=== PATIENT | male | born 1990 | race Two or more races ===

== ENCOUNTER 2020-10-28 23:05 | Emergency (ER) | payer OTHER ==
[~2020-10-28] VITALS: Ht 172.7 cm; Wt 77.1 kg
--- NOTE | 2020-10-28 23:13 | NUR ---
ED Nurse Note: Pt c/o bilateral eye irritation. Reports dust got in them at work and irritation got worse after shower.
[2020-10-28] MEDS ORDERED: Fluorescein Strips RIGHT EYE ONE (23:30)
[2020-10-28] MEDS ORDERED: ACUVAIL 0.45%1 EACH OP (23:32)
[2020-10-28] MEDS ORDERED: ARTIFICIAL TEAR15 ML BOTH EYES (23:32)
[2020-10-28 23:37] VITALS: BP 120/82
--- NOTE | 2020-10-28 23:37 | Emergency Room Report ---
History of Present Illness General Chief Complaint: Eye Problems Source: Patient Present Illness HPI Disclaimer: Please note that this report is being documented using [employer]AG[employer] technology. This can lead to erroneous entry secondary to incorrect interpretation by the dictating instrument. HPI: 30-year-old male presents for bilateral eye irritation. Symptoms began after cleaning a [employer] [place] earlier today. He reports a gritty sensation in his eyes and increased lacrimation. Denies burning, pain with extraocular movement, swelling, headache, sinus congestion, rhinorrhea. Denies eye trauma. PMH: Reviewed PSH: Reviewed Allergies: Reviewed Social Hx: Reviewed Allergies: Coded Allergies: PROCHLORPERAZINE (Verified Allergy, Unknown, 10/28/20) COVID-19 Screening Contact w/high risk pt: No Experienced COVID-19 symptoms?: No COVID-19 Testing performed PROCUREMENT COORDINATOR: Yes - june 2020 COVID-19 Screening: Negative COVID-19 COVID-19 Testing Source: formerly [facility] Nursing Documentation-PMH Past Medical History: No Stated History Review of Systems All Other Systems: negative except mentioned in HPI Physical Exam Vital Signs Date Time Temp Pulse Resp B/P (MAP) Pulse Ox O2 Delivery O2 Flow Rate FiO2 10/28/20 23:08 98.2 88 18 120/82 (95) 99 Room Air General: Awake and alert, no acute distress HEENT: NC/AT. Bilateral conjunctival injection without chemosis. No hyphema, no hypopyon. No limitation on extraocular movements. Visual acuity shows 20/30 OS, 20/30 OD, 20/30 OU. Roberts lamp examination shows no corneal abrasions, no ulcers, no dendrites, negative Kristie. Resp: Normal work of breathing Skin: Intact. No abrasions, laceration or rash over the exposed skin MSK: Normal tone and bulk. Moving all extremities. No obvious deformity. Neuro: Awake and alert. Mentating appropriately Medical Decision Making Diagnostic Impression: Primary Impression: Eye irritation ER Course 30-year-old male presents with bilateral eye irritation. Likely irritant from the dust he was exposed to earlier today. No evidence of corneal abrasion, ulcers or other significant pathology. Feeling much better after receiving tetracaine. Will discharge with artificial tears and Toradol drops. Follow-up as needed. Last Vital Signs Date Time Temp Pulse Resp B/P (MAP) Pulse Ox O2 Delivery O2 Flow Rate FiO2 10/28/20 23:08 98.2 88 18 120/82 (95) 99 Room Air Disposition: HOME, SELF-CARE Condition: Stable Scripts Dextran 70/Hypromellose (ARTIFICIAL TEARS EYE DROPS*) 15 Ml Drops 1 DROP BOTH EYES TID, #15 ML 0 Refills Prov: Luís Patel MD 10/28/20 Ketorolac Tromethamine/Pf (ACUVAIL 0.45% OPHTH SOLUTION) 1 Each Droperette 1 EACH OP TID for 2 Days, #1 APPL Prov: Luís Patel MD 10/28/20 Patient Instructions: Chemical Conjunctivitis Additional Instructions: Please follow-up with your primary care doctor in the next 1 to 3 days to discuss this emergency department visit and for reevaluation. If you have any new or worsening symptoms please return to the emergency department for reevaluation. Please note that this report is being documented using [employer] technology. This can lead to erroneous entry secondary to incorrect interpretation by the dictating instrument. Luís Patel MD Oct 28, 2020 23:37
[2020-10-28 23:41] VITALS: BP 120/82
--- NOTE | 2020-10-28 23:42 | NUR ---
ER DISCHARGE NOTE: Patient is cleared to be discharged per ER MD, pt is aaox4, on room air, with stable vital signs. pt was given d/c and prescription instructions, pt was able to verbalize understanding, pt id band removed. pt is able to ambulate with steady gait. pt took all belongings.
== END 2020-10-28 23:42 | disposition home or self-care (01) ==
LOC: EMR 23:17
DX: H57.9 Unspecified disorder of eye and adnexa (principal); Z88.8 Allergy status to other drugs, medicaments and biological substances
CPT/HCPCS: 99282